=== PATIENT | female | born 1975 | race Caucasian/White ===

== ENCOUNTER → 2017-09-26 12:50 | Outpatient (CLI) | payer BC, SELFPAY ==
--- NOTE | 2017-09-26 12:58 | MM_ITS ---
MM Dig mamm DX unilat RT CAD COMPARISON: 02/21/2017 INDICATION: Follow-up abnormal mammogram ORDERING PHYSICIAN: Morgan Dodge PATIENT AGE: 42 years TECHNIQUE: Standard images performed problem-solving views FINDINGS: Average fibroglandular tissue. Asymmetric density once again negative tilted in the outer aspect of the right breast. This does appear to compress out as fibroglandular tissue. No malignant appearing mass or malignant appearing microcalcification. IMPRESSION: No change asymmetric density outer right breast. No evidence of malignancy BI-RADS Category: 2 Benign Finding(s) RECOMMENDED FOLLOW-UP: 6M - 6 MONTH FOLLOW-UP Recommend screening mammogram in February 2018 of both breasts (A letter has been sent to the patient regarding results of the study.)
== END ==
PROVIDERS: Family Provider Family Medicine; PCP Family Medicine; Visit Provider Obstetrics & Gynecology Gynecology
DX: R92.8 Other abnormal and inconclusive findings on diagnostic imaging of breast (principal)
CPT/HCPCS: 77065